=== PATIENT | male | born 1950 | race Caucasian/White ===

== ENCOUNTER 2019-02-23 06:05 | Day surgery (SDC) | payer MEDICARE, OTHER ==
[2019-02-23] VITALS (14 sets, daily range): BP systolic 84–136; BP diastolic 47–69; PULSE 79–92; RESP 13–23; Ht 172.7 cm; Wt 84.0 kg
[~2019-02-23] VITALS: Ht 172.7 cm; Wt 84.0 kg
[2019-02-23] MEDS ORDERED: ACETAMINOPHEN 500 MG TAB PO ONE (06:30)
[2019-02-23] MEDS ORDERED: CEFAZOLIN 2 GM/50 ML (PMX) 50 ML IVPB ONE (06:30)
--- NOTE | 2019-02-23 07:04 | PREAC ---
Date/Time of Note Date/Time of Note DATE: 02/23/19 TIME: 07:01 Anesthesia Eval and Record Evaluation Time Pre-Procedure Interview DATE: 02/23/19 TIME: 07:01 Age 69 Sex male NPO: 8 hrs Preoperative diagnosis L foot pain Planned procedure L 1st MPJ joint replacement Past Medical History Past Medical History: Includes Cardio: HTN, Dyslipidemia Pulm: COPD, Asthma GI: GERD (under control with meds; no episodes for "a long time") Surgery & Anesthesia Issues No known issue Meds Anticoagulation: No Beta Maty within 24 hr: No Reason Beta Maty not given: Pt. not on B-Maty Current Medications Cefazolin Sodium/ Dextrose 50 ml @ 50 mls/hr PRE-OP ONCE IVPB ; Start 02/23/19 at 06:30; Stop 02/23/19 at 07:29 Meds reviewed: Yes Allergies Coded Allergies: No Known Allergy (Unverified , 02/23/19) Allergies Reviewed: Yes Labs/Studies Labs Reviewed: Reviewed by anesthesiologist test: N/A Studies: ECG (SR w/ occ PVCs otherwiser nml), CXR (no acute disease) Pre-procedure Exam Airway: Adequate mouth opening, Adequate thyromental dist Mallampati: Mallampati II Teeth: Normal Lung: Normal Heart: Normal ASA Physical Status ASA physical status: 2 Emergency: None Planned Anesthetic General/MAC: LMA, MAC Pre-operative Attestations Prior to commencing anesthesia and surgery, the patient was re-evaluated, there was verification of: *The patient's identity *The results of appropriate recent lab work and preoperative vital signs *The above evaluation not changing prior to induction *Anesthetic plan, risk benefits, alternative and complications discussed with patient/family; questions answered; patient/family understands, accepts and wishes to proceed. DMITRY BIRCH Feb 23, 2019 07:04
[2019-02-23] MEDS ORDERED: FENTAnyl 50 MCG/ML VIAL ONE (07:21)
[2019-02-23] MEDS ORDERED: PROPOFOL 40 ML ONE ×2 (07:21→08:03)
[2019-02-23] MEDS ORDERED: LIDOCAINE 2% (SDV) 5 ML INJ ONE (07:21)
[2019-02-23] MEDS ORDERED: CEFAZOLIN 1 GM INJ ONE (07:21)
[2019-02-23] MEDS ORDERED: MIDAZOLAM 1 MG/ML 2 ML INJ ONE (07:22)
[2019-02-23] MEDS ORDERED: METOCLOPRAMIDE 10 MG INJ ONE (07:24)
[2019-02-23] MEDS ORDERED: HYDROmorphONE 1 MG/5 ML IV SYRINGE IV PRN ×3 (07:30)
[2019-02-23] MEDS ORDERED: ONDANSETRON 4 MG INJ IV PRN (07:30)
[2019-02-23] MEDS ORDERED: ALBUTEROL 0.083% (NEB) 2.5 MG/3 ML AMP HHN PRN (07:30)
[2019-02-23] MEDS ORDERED: morphine 2 MG INJ IV PRN ×2 (07:30)
[2019-02-23] MEDS ORDERED: EPHEDrine 25 MG/5 ML SYG IV PRN (07:30)
[2019-02-23] MEDS ORDERED: LABETALOL HCL 20MG INJ IV PRN (07:30)
[2019-02-23] MEDS ORDERED: FENTAnyl 50 MCG/ML VIAL IV PRN ×2 (07:30)
[2019-02-23] MEDS ORDERED: DIPHENHYDRAMINE 50 MG INJ IV PRN (07:30)
[2019-02-23] MEDS ORDERED: LACTATED RINGER'S 1,000 ML IV SCH (07:30)
[2019-02-23] MEDS ORDERED: OXYCODONE/ACETAMINOPHEN (5/325) TAB PO PRN ×2 (07:30)
[2019-02-23] MEDS ORDERED: hydrALAzine 20 MG INJ IV PRN (07:30)
[2019-02-23] MEDS ORDERED: MEPERIDINE 25 MG INJ IV PRN (07:30)
[2019-02-23] MEDS ORDERED: LIDOCAINE 2% (MDV) 20 ML INJ ONE ×2 (07:31→08:22)
[2019-02-23] MEDS ORDERED: BUPIVACAINE 0.5% (SDV) 30 ML INJ ONE ×2 (07:31→08:51)
--- NOTE | 2019-02-23 07:31 | HPN ---
Date/Time of Note Date/Time of Note DATE: 02/23/19 TIME: 07:31 Interval H&P Admission Note Pt. seen H&P reviewed: No system changes LASHON TRIPP DPM Feb 23, 2019 07:31
[2019-02-23] MEDS ORDERED: POLYMYXIN/BACITRACIN 1L IRRIG ONE (07:32)
[2019-02-23] MEDS ORDERED: ATOR40TA68 ORAL (07:33)
[2019-02-23] MEDS ORDERED: LISI-471 ORAL (07:33)
[2019-02-23] MEDS ORDERED: METO-319 ORAL (07:33)
[2019-02-23] MEDS ORDERED: AMLO-147 ORAL (07:33)
[2019-02-23] MEDS ORDERED: OMEP40CA6 ORAL (07:33)
[2019-02-23] MEDS ORDERED: FLUT12HF4 INH (07:33)
[2019-02-23] MEDS ORDERED: CHLO1CAP57 PO (07:33)
[2019-02-23] MEDS ORDERED: PHENYLephrine (100 MCG/ML) 10ML SYG ONE ×2 (07:59→08:25)
[2019-02-23] MEDS ORDERED: EPHEDrine 25 MG/5 ML SYG ONE (08:48)
--- NOTE | 2019-02-23 09:08 | PAC ---
Date/Time of Note Date/Time of Note DATE: 02/23/19 TIME: 09:07 Post-Anesthesia Notes Post-Anesthesia Note Last documented vital signs Vital Signs Date Temp Pulse Resp B/P (MAP) Pulse Ox O2 O2 Flow FiO2 Time Delivery Rate 02/23/19 98.6 98.4 92 16 93/47 99 face 07:05 090 mask 6L 3 02/23/19 86 18 136/69 98 Room Air 07:03 (91) Activity: WNL Respiratory function: WNL Cardiovascular function: WNL Mental status: Baseline Pain reasonably controlled: Yes Hydration appropriate: Yes Nausea/Vomiting absent: Yes DMITRY BIRCH Feb 23, 2019 09:08
--- NOTE | 2019-02-23 09:14 | OPR ---
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 Grafts/Implants none Complications none Pt Condition Post Procedure: stable Disposition: PACU Indications This is a pleasant 69-year-old male patient who has been suffering with active can pain and stiffness in the left first metatarsal phalangeal joint for several years. Riddhi the procedure is exostectomy and first MPJ joint replacement. Risks and complications of this type of surgery was discussed with patient in great detail. Risks and complications discussed include, but are not limited to, postoperative infection, postoperative pain, chronic pain and disability, hardware failure, malunion, nonunion, delayed union, failure of surgery to vicente ect the problem, need for additional surgical procedures, deep venous thrombosis, gait disturbance, problems with shoegear, limitation of activities, limb loss and loss of life. Patient understands the discussion and agrees to the procedure. An informed consent was obtained, signed and placed in the chart. No guarantee or warrantee was given or implied as to the outcome of the procedure either in verbal or written form. Procedure Description The patient was seen in the preoperative area. Proposed surgery was discussed with patient in great detail. Risks and complications were discussed. An opportunity was given the patient to ask questions and all questions were answered. Patient acknowledges understanding of the discussion and agrees to the procedure. An informed consent was obtained, signed and placed in the chart. The patient was then taken to the operating room and placed on the operating table in the supine position. Patient was placed under general anesthesia by the anesthesiologist. At the pneumatic ankle tourniquet was applied to the left ankle. The left ankle was then scrubbed, prepped and draped in the usual aseptic manner. An Esmarch bandage was utilized to exsanguinate the left foot and the pneumatic ankle tourniquet was inflated to 250 mmHg pressure. Procedure: First metatarsal phalangeal joint release and exostectomy Attention was directed to the first MPJ. A 6 cm linear incision was made over the dorsal medial aspect of the first MPJ medial and parallel to the extensor hallucis longus tendon. The incision was deepened through the subcutaneous layer all the way down to the joint capsule using sharp and blunt dissection techniques with care being taken to identify and protect vital neurovascular structures. A linear capsulotomy was performed and the joint capsule was dissected off of the first metatarsal phalangeal joint, exposing the entire joint. Significant bony exostosis was present in the surrounding joint. Bony exostosis was removed using osteotome and mallet. All rough edges were then smoothed using a power rasp. The wound was flushed with copious muscle sterile normal saline. Procedure: First metatarsal phalangeal joint replacement Next, the Marcus implant from [employer] was selected. The guide was inserted and both the head of the first metatarsal and the base of the proximal phalanx was cut using a power saw. A drill hole was made in the center of both the first metatarsal and the proximal phalanx. A #3 Marcus implant was selected and sizing started for the #3 Marcus implant for both the proximal and distal stems. A broach was inserted in both first metatarsal and proximal phalanx. A trial implant was inserted and excellent range of motion was noted with good alignment of the joint. Next, the permanent implant was inserted. Copious amounts of sterile normal saline was used for irrigation of the wound. The joint capsule was reapproximated using 3-0 Vicryl suture. The subcutaneous layer was closed using 4-0 Vicryl suture and the skin was closed using 5 a Monocryl in subcuticular stitch pattern. I was able to get around 50 dorsiflexion and 50 of plantar flexion on the table. Postoperative injection was given about 20 cc of 0.5% Marcaine plain. Sterile dressing was applied to the left foot. The pneumatic ankle tourniquet was deflated at this time and prompt hyperemic response was noted to digits of the left foot. The patient tolerated procedure anesthesia well. He was transferred to the recovery room with vital signs stable and vascular status intact to the left lower extremity. Patient will be sent home after postoperative monitoring. Postoperative orders have been written. Partial weightbearing on the left foot allowed with postop shoe and crutches. KOSARI,LASHON DPM Feb 23, 2019 09:14
--- NOTE | 2019-02-23 09:22 | SIPON ---
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
== END 2019-02-23 10:51 | disposition home or self-care (01) ==
LOC: SDS 06:05
PROVIDERS: ATTEND Podiatrist Foot & Ankle Surgery
DX: M19.072 Primary osteoarthritis, left ankle and foot (principal); M20.22 Hallux rigidus, left foot; M89.9 Disorder of bone, unspecified; I10 Essential (primary) hypertension; K21.9 Gastro-esophageal reflux disease without esophagitis; E78.5 Hyperlipidemia, unspecified; J44.9 Chronic obstructive pulmonary disease, unspecified
CPT/HCPCS: 28104; 28899; 73630; 88304; J0690; J2250; J2370; J2765; J3010; L3260